=== PATIENT | male | born 1995 | race African-American/Black ===

== ENCOUNTER 2018-05-21 20:04 | Emergency (ER) | payer OTHER ==
[~2018-05-21] VITALS: Ht 190.5 cm; Wt 87.0 kg
[2018-05-21 20:07] VITALS: Ht 190.5 cm; Wt 87.0 kg
[2018-05-21] MEDS ORDERED: morphine 4 MG/ML VIAL IV STA (22:55)
[2018-05-21] MEDS ORDERED: ONDANSETRON 4 MG INJ IV STA (22:55)
[2018-05-21] MEDS ORDERED: SOD CHLORIDE 0.9% 1,000 ML IV STA (22:55)
--- NOTE | 2018-05-22 02:10 | ERD ---
ER Documentation Chief Complaint Chief Complaint LEFT FLANK PAIN, PAIN IN URINATION X5DAYS; DETOXING FROM METH HPI This is a 22-year-old male complains of left flank pain and pain urination 5 days. 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 Denies any fevers or chills. Pain is mild to moderate intensity no exacerbating relieving factors. Mild nausea but no vomiting. No fevers or chills. No other current complaints. ROS All systems reviewed and are negative except as per history of present illness. PMhx/Soc History of Surgery: Yes (hernia) Anesthesia Reaction: No Hx Neurological Disorder: No Hx Respiratory Disorders: No Hx Cardiac Disorders: No Hx Psychiatric Problems: Yes (Anxiety, depression) Hx Miscellaneous Medical Probl: Yes (Rhabdomyolysis, drug addiction) Hx Alcohol Use: Yes Hx Substance Use: Yes (Meth, Heroine) Hx Tobacco Use: Yes (currently using vap) Smoking Status: Former smoker Physical Exam Vitals Vital Signs Date Temp Pulse Resp B/P (MAP) Pulse Ox O2 O2 Flow FiO2 Time Delivery Rate 05/21/18 87 16 134/88 98 Room Air 23:02 (103) 05/21/18 97.8 103 18 158/60 98 20:07 (92) Physical Exam Const: No acute distress Head: Atraumatic Eyes: Normal Conjunctiva ENT: Normal External Ears, Nose and Mouth. Neck: Full range of motion. No meningismus. Resp: Clear to auscultation bilaterally Cardio: Regular rate and rhythm, no murmurs Abd: Soft, non tender, non distended. Normal bowel sounds Skin: No petechiae or rashes Back: No midline or flank tenderness Ext: No cyanosis, or edema Neur: Awake and alert Psych: Normal Mood and Affect Result Diagram: 05/21/18230605/21/182306 Results 24 hrs Laboratory Tests Test 05/21/18 23:07 White Blood Count 5.6 10^3/ul Red Blood Count 5.13 10^6/ul Hemoglobin 15.8 g/dl Hematocrit 45.1 % Mean Corpuscular Volume 87.9 fl Mean Corpuscular Hemoglobin 30.8 pg Mean Corpuscular Hemoglobin Concent 35.0 g/dl Red Cell Distribution Width 11.8 % Platelet Count 320 10^3/UL Mean Platelet Volume 9.9 fl Immature Granulocytes % 0.200 % Neutrophils % 41.8 % Lymphocytes % 48.3 % Monocytes % 8.8 % Eosinophils % 0.4 % Basophils % 0.5 % Nucleated Red Blood Cells % 0.0 /100WBC Immature Granulocytes # 0.010 10^3/ul Neutrophils # 2.3 10^3/ul Lymphocytes # 2.7 10^3/ul Monocytes # 0.5 10^3/ul Eosinophils # 0.0 10^3/ul Basophils # 0.0 10^3/ul Nucleated Red Blood Cells # 0.0 10^3/ul Urine Color YELLOW Urine Clarity CLEAR Urine pH 5.0 Urine Specific [place] 1.025 Urine Ketones TRACE mg/dL Urine Nitrite NEGATIVE mg/dL Urine Bilirubin NEGATIVE mg/dL Urine Urobilinogen 1+ mg/dL Urine Leukocyte Esterase 1+ Margie/ul Urine Microscopic RBC 2 /HPF Urine Microscopic WBC 47 /HPF Urine Hemoglobin NEGATIVE mg/dL Urine Glucose NEGATIVE mg/dL Urine Total Protein NEGATIVE mg/dl Sodium Level 141 mmol/L Potassium Level 3.9 mmol/L Chloride Level 98 mmol/L Carbon Dioxide Level 29 mmol/L Anion Gap 14 Blood Urea Nitrogen 18 mg/dl Creatinine 1.48 mg/dl Est Glomerular Filtrat Rate mL/min 58 mL/min Glucose Level 71 mg/dl Calcium Level 10.1 mg/dl Total Bilirubin 1.0 mg/dl Direct Bilirubin 0.00 mg/dl Indirect Bilirubin 1.0 mg/dl Aspartate Amino Transf (AST/SGOT) 30 IU/L Alanine Aminotransferase (ALT/SGPT) 29 IU/L Alkaline Phosphatase 64 IU/L Total Protein 8.6 g/dl Albumin 5.1 g/dl Globulin 3.50 g/dl Albumin/Globulin Ratio 1.45 Lipase 91 U/L Current Medications Medications Dose Sig/Shelbie Start Time Status Last (Trade) Ordered Route PRN Stop Time Admin Dose Reason Admin Sodium 1,000 ml @ Q1H STAT 05/21/18 DC 05/21/18 Chloride 1,000 mls/hr IV 22:55 05/21/18 23:20 23:54 Morphine 4 mg ONCE STAT 05/21/18 DC 05/21/18 Sulfate IV 22:55 05/21/18 23:19 (morphine) 22:57 Ondansetron 4 mg ONCE STAT 05/21/18 DC 05/21/18 HCl (Zofran IV 22:55 05/21/18 23:19 Inj) 22:57 Procedures/MDM Medical decision m[age]-year-old male with evidence of urinary tract infection. No evidence of sepsis. Patient is well-appearing and tolerating p.o. Will be discharged home. Given dose of Rocephin here in the ER. Will be discharged with appropriate antibiotics. Culture pending. Patient's gastrointestinal symptoms have stabilized while in the department. No evidence of severe dehydration, sepsis, or surgical abdomen. Extensive discussion with family and patient that occult disease cannot be ruled out. 8 hour recheck for repeat abdominal exam is planned. Departure Diagnosis: Primary Impression: Flank pain Condition: Stable RYLIE TOVAR May 22, 2018 02:10
[2018-05-22] MEDS ORDERED: CIPR500T4 PO (02:33)
[2018-05-22 03:04] VITALS: BP 125/70; PULSE 84; RESP 16
[2018-05-22] MEDS ORDERED: GABA300C16 PO (03:13)
[2018-05-22] MEDS ORDERED: MIRT30TA5 PO (03:13)
[2018-05-22] MEDS ORDERED: ATOM80CA PO (03:13)
[2018-05-22] MEDS ORDERED: LORA1TAB PO (03:13)
[2018-05-22] MEDS ORDERED: BUPR300T48 PO (03:13)
[2018-05-22] MEDS ORDERED: LORA-444 PO (03:13)
== END 2018-05-22 03:04 | disposition home or self-care (01) ==
LOC: E/R 20:04
DX: R10.9 Unspecified abdominal pain (principal); R11.0 Nausea; Z87.891 Personal history of nicotine dependence
CPT/HCPCS: 36415; 74176; 80053; 81001; 83690; 85025; 87086; 96374; 96375; 99285; J2270; J2405; J7030